=== PATIENT | female | born 1990 | race Caucasian/White ===

== ENCOUNTER 2020-08-22 10:07 | Emergency (ER) | payer MEDICAID ==
[2020-08-22 10:19] VITALS: BP 164/91
--- NOTE | 2020-08-22 10:31 | Emergency Department Report ---
ED HPI - General Chief complaint: Urogenital-Female Stated complaint: POSSIBLE MISCARRIAGE Time Seen by Provider: 08/22/20 10:21 Source: patient Mode of arrival: Ambulatory Limitations: No Limitations - History of Present Illness Initial comments: This is a 30-year-old female nontoxic well in appearnce with no signs of distress presents with wanting for a D/C for mischarge. Patient stated is about [address] MARTINEZ at ([facility]) and was started on medications for mischarge due to no heart beat but stated has not had any vaginal bleeding. Today, patient denies any symptoms or complaints. Patient denies any vaginal bleeding or pelvic pain. Patient denies any chest pain, shortness of breathe, fever, chills, nausea, vomiting, headache, stiff neck, abdominal pain, numbness or tingling. Patient denies any recent travels, long car rides, or recent hospital stays. Patient denies any urinary symptoms. Severity: moderate Associated symptoms: denies other symptoms. denies: nausea/vomiting, vaginal bleeding, vaginal discharge, abdominal pain, dysuria, headache, vision changes, malaise, dysparuenia, rash, seizure, shortness of breath, syncope, weakness Vaginal bleeding: none :: Yes Number of weeks : 8 Pre-jeanine care: followed by OB - Related Data Home Medications Medication Instructions Recorded Confirmed Last Taken Acetaminophen [Acetaminophen TAB] 325 mg PO Q4-6H PRN 06/06/15 06/06/15 1 Week Ago ~05/30/15 Allergies Allergy/AdvReac Type Severity Reaction Status Date / Time Penicillins Allergy Intermediate Hives Verified 06/05/15 18:27 ED Review of Systems ROS: Stated complaint: POSSIBLE MISCARRIAGE Other details as noted in HPI Comment: All other systems reviewed and negative Constitutional: denies: chills, fever Eyes: denies: eye pain, eye discharge, vision change ENT: denies: ear pain, throat pain Respiratory: denies: cough, shortness of breath, wheezing Cardiovascular: denies: chest pain, palpitations Endocrine: no symptoms reported Gastrointestinal: denies: abdominal pain, nausea, diarrhea Genitourinary: denies: urgency, dysuria, discharge Musculoskeletal: denies: back pain, joint swelling, arthralgia Skin: denies: rash, lesions Neurological: denies: headache, weakness, paresthesias Psychiatric: denies: anxiety, depression Hematological/Lymphatic: denies: easy bleeding, easy bruising ED Past Medical Hx - Past Medical History Hx Hypertension: No Hx Congestive Heart Failure: No Hx Diabetes: No Hx Deep Vein Thrombosis: No Hx Renal Disease: No Hx Sickle Cell Disease: No Hx Seizures: No Hx Asthma: No Hx COPD: No Hx HIV: No - Social History Smoking Status: Never Smoker - Medications Home Medications: Home Medications Medication Instructions Recorded Confirmed Last Taken Type Acetaminophen [Acetaminophen TAB] 325 mg PO Q4-6H PRN 06/06/15 06/06/15 1 Week Ago History ~05/30/15 ED Physical Exam - General Limitations: No Limitations General appearance: alert, in no apparent distress - Head Head exam: Present: atraumatic, normocephalic - Eye Eye exam: Present: normal appearance - Neck Neck exam: Present: normal inspection, full ROM - Respiratory Respiratory exam: Absent: respiratory distress - Cardiovascular Cardiovascular Exam: Present: regular rate - GI/Abdominal GI/Abdominal exam: Present: soft, normal bowel sounds. Absent: distended, tenderness, guarding, rebound, rigid, diminished bowel sounds - Extremities Exam Extremities exam: Present: full ROM - Back Exam Back exam: Present: full ROM - Neurological Exam Neurological exam: Present: alert, oriented X3, normal gait - Psychiatric Psychiatric exam: Present: normal affect, normal mood - Skin Skin exam: Present: warm, dry, intact, normal color. Absent: rash ED Course Vital Signs 08/22/20 10:16 Temperature 99.2 F Pulse Rate 103 H Respiratory 20 Rate Blood Pressure 164/91 O2 Sat by Pulse 100 Oximetry - Reevaluation(s) Reevaluation #1: 08/22/20 10:32 Patient is speaking in full sentences with no signs of distress noted. - Consultations Consultation #1: 08/22/20 10:32 Patient consulted with her OBGYN Dr. Martinez and stated patient needs to follow-up with her in her office next week and will office will call patient to schedule appointment shortly. ED Medical Decision Making - Medical Decision Making Patient was notified of the conversation with Dr. Martinez. Patient is stable and was examined by me. VSS. Exam is unremarkable. Patient was instructed to Follow-up with a OBGYN doctor in 3-5 days or if symptoms worsen and continue return to emergency room as soon as possible. At time of discharge, the patient does not seem toxic or ill in appearance. No acute signs of distress noted. Patient agrees to discharge treatment plan of care. No further questions noted by the patient. Critical care attestation.: If time is entered above; I have spent that time in minutes in the direct care of this critically ill patient, excluding procedure time. ED Disposition Clinical Impression: Referral needed Disposition: [facility] SCREENING EXAM-LEFT Is pt being admited?: No Does the pt Need Aspirin: No Condition: Stable Additional Instructions: Follow-up with a OBGYN doctor in 3-5 days or if symptoms worsen and continue return to emergency room as soon as possible. Referrals: PRIMARY CARE, [Referring] - 3-5 Days
== END 2020-08-22 10:40 | disposition left against medical advice (07) ==
LOC: ED 10:07
DX: Z53.21 Procedure and treatment not carried out due to patient leaving prior to being seen by health care provider (principal)

== ENCOUNTER 2022-06-25 17:15 | Inpatient (IN) | payer MEDICAID ==
--- NOTE | 2022-06-25 20:32 | History and Physical Report ---
History of Present Illness Date of examination: 06/25/22 Date of admission: 06/25/22 17:15 History of present illness: Patient was seen in office today underwent ultrasound for size smaller than dates. Patient ultrasound showed a asymmetric intrauterine growth retardation and patient is being admitted for labor induction. Menstrual History Regularity: regular Menses every: 28 days Duration: 6 LMP: 09/25/2021 LMP reliability: definite test type: urine test Date: 02/06/2022 BC at conception: none Planned ? no EDC Calculations LMP: 07/02/2022 EDC Confirmation: 07/02/2022 Past History : 4 Term Births: 2 Premature Births: 0 Living Children: 2 Para: 2 Mult. Births: 0 Prev : 0 Aborta: 1 Elect. Ab: 0 Spont. Ab: 1 Ectopics: 0 # 1 Delivery date: 04/10/2014 Weeks Gestation: 40 Delivery type: Hours of labor: 6 Anesthesia type: none Delivery location: [facility] Sex: Male weight: 6-13 Name: Ramsey # 2 Delivery date: 06/05/2015 Weeks Gestation: 39 Delivery type: Vaginal Anesthesia type: none Delivery location: [facility] Sex: male weight: 7.50 Comments: none # 3 Delivery date: 2019 Weeks Gestation: 8 Delivery type: SAB Comments: recv'd medications, no procedures Past Medical History: Hypertension Abnormal Pap Smear Anemia Past Surgical History: None Negative Past Surgical History Family History Summary: Other Family Member - Has No Family History of Ovarvian Cancer - Entered On: 12/07/2014 Other Family Member - Has No Family History of Colon Cancer - Entered On: 12/07/2014 Other Family Member - Has No Family History of Breast Cancer - Entered On: 12/07/2014 MGM - Has Family History of Cervical Cancer - Entered On: 12/07/2014 Father - Has Family History of Diabetes - Entered On: 12/07/2014 Mother - Has Family History of Diabetes - Entered On: 12/07/2014 Social History: Patient is Smoking History: Patient has never smoked. Risk Factors: Smoked Tobacco Use: Never smoker Smokeless Tobacco Use: Never Counseled to Quit/Cut Down: yes HIV High Risk Behavior: no Caffeine Use: 1 drinks per day Exercise: no Exercise Counseling: yes Seatbelt Use: preg-estate planning counselor % Family History Risk Factors: Family History of OR in 1 Female Relative Age < 65: no Family History of OR in 1 Male Relative Age < 55: no No Dietary Counseling Reason: pn yes Alcohol Use: no Drug Use: no Past Medical History Anesthesia Complications: negative Anemia: positive Autoimmune Disorder: negative Bleeding Disorder: negative Blood Transfusions: negative Breast Disease: negative Diabetes: negative Heart Disease: negative Hypertension: positive, diagnosed this , no longer on medications Hepatitis/Liver Disease: negative Kidney Disease/UTI: negative Neurologic/Epilepsy/Migraines: negative Phlebitis/Varicosities: negative Psychiatric: negative Pulmonary Disease/Asthma: negative Thyroid Disease: negative Hospitalizations: negative Surgery (Non-electronic data interchange specialist): None Negative Past Surgical History Abnormal PAP: positive, normal pap on 12/07/20 per pt, RACHNA signed ISSA Exposure: negative Infertility: negative Uterine Anomaly: negative Uterine Surgery (not C/S): negative Other Gynecologic Problems: negative Social Hx: Patient is Smoking History: Patient has never smoked. Infection History Hx of STD: none HIV Risk Eval: no Hepatitis B Risk Eval: low risk Personal hx. of genital herpes: no Partner hx. of genital herpes: no Rash, Viral, or Febrile illness since last LMP? no Varicella/Chicken Pox Status: Immunized TB Risk: no Genetic History Congenital Heart Defect: Mom: no Dad: no Franco Disease: Mom: no Dad: no Thalassemia Mom: no Dad: no Neural Tube Defect Mom: no Dad: no Down's Syndrome Mom: no Dad: no Brian-Sachs Mom: no Dad: no Sickle Cell Disease/Trait Mom: no Dad: no Hemophilia Mom: no Dad: no Muscular Dystrophy Mom: no Dad: no Cystic Fibrosis Mom: no Dad: no Hyrum Chorea Mom: no Dad: no Mental Retardation Mom: no Dad: no Fragile X Mom: no Dad: no Other Genetic/Chromosomal Disorder Mom: no Dad: no Child w/other defect Mom: no Dad: no Enviromental Exposures Enviromental Exposures Reviewed Xray Exposure: no Medication, drug, or alcohol use since LMP: no Chemical/Other Exposure: no Exposure to Cat Liter: yes Hx of Parvovirus (Fifth Disease): no Occupational Exposure to Children: none Current Allergies (reviewed today): PCN (Critical) Past History Past Medical History: hypertension, other (SEE HPI) Past Surgical History: other (SEE HPI) METAL BUFFER History: other (SEE HPI) Family/Genetic History: other (SEE HPI) Social history: full code, other (SEE HPI) - Obstetrical History Expected Date of Delivery: 07/02/22 Actual Gestation: 39 Week(s) 0 Day(s) : 4 Para: 2 Hx # Term Pregnancies: 2 Number of Pregnancies: 0 Spontaneous Abortions: 1 Induced : 0 Number of Living Children: 2 Medications and Allergies Allergies Allergy/AdvReac Type Severity Reaction Status Date / Time Penicillins Allergy Intermediate Hives Verified 06/05/15 18:27 Home Medications Medication Instructions Recorded Confirmed Last Taken Type Acetaminophen [Acetaminophen TAB] 325 mg PO Q4-6H PRN 06/06/15 06/06/15 1 Week Ago History ~05/30/15 Review of Systems Constitutional: other (SEE HPI) - Vital Signs Vital signs: Vital Signs Pulse BP 80 139/77 06/25/22 17:53 06/25/22 17:53 Temp Pulse Resp BP Pulse Ox 98.3 F 71 18 125/75 98 06/25/22 19:21 06/25/22 20:26 06/25/22 19:21 06/25/22 20:17 06/25/22 20:26 - Physical Exam Breasts: Positive: deferred Cardiovascular: Regular rate Lungs: Positive: Normal air movement Abdomen: Positive: normal appearance, soft Genitourinary (Female): Positive: normal external genitalia Extremities: Positive: normal Results Result Diagrams: 06/25/22 19:50 All other labs normal. Assessment and Plan - Patient Problems (1) Asymmetric IUGR affecting , antepartum Current Visit: Yes Status: Acute Plan to address problem: Patient been admitted for serial labor induction. Patient will receive Cervidil this evening. We will monitor tracing closely with the start of Pitocin in a.m. per protocol. (2) Hypertension Current Visit: Yes Status: Acute Qualifiers: Hypertension type: primary hypertension Qualified Code(s): I10 - Essential (primary) hypertension Plan to address problem: Patient presently on no medication we will monitor blood pressure throughout labor induction.
[2022-06-25] MEDS ORDERED: ACETAMINOPHEN 325 MG TAB PO PRN (20:35)
[2022-06-25] MEDS ORDERED: LIDOCAINE (2%) 20 MG/1 ML VIAL 20 ML MDV INFILTRATI ONE (20:35)
[2022-06-25] MEDS ORDERED: miSOPROStol 200 MCG TAB PR PRN (20:35)
[2022-06-25] MEDS ORDERED: ePHEDrine SULFATE 50 MG/1 ML INJ IV PRN (20:35)
[2022-06-25] MEDS ORDERED: MINERAL OIL 30 ML ORAL LIQD PO PRN (20:35)
[2022-06-25] MEDS ORDERED: METHYLERGONOVINE MALEATE 0.2 MG/ML VIAL IM PRN (20:35)
[2022-06-25] MEDS ORDERED: CARBOPROST TROMETHAMINE 250 MCG/1 ML INJ IM PRN (20:35)
[2022-06-25] MEDS ORDERED: TERBUTALINE 1 MG/1 ML INJ SUB-Q PRN (20:35)
[2022-06-25] MEDS ORDERED: OXYTOCIN 10 UNIT/1 ML INJ IM PRN (20:35)
[2022-06-25] MEDS ORDERED: LOPERAMIDE 2 MG CAP PO PRN (20:35)
[2022-06-25] MEDS ORDERED: BUTORPHANOL 2 MG/1 ML INJ IV PRN ×2 (20:35)
[2022-06-25] MEDS ORDERED: DINOPROSTONE 10 MG VAG SUPP VG ONE (20:35)
[2022-06-25] MEDS ORDERED: LACTATED RINGERS 1,000 ML IV SCH (20:45)
[2022-06-25] MEDS ORDERED: OXYTOCIN DRIP 30 UNITS/500 ML BAG IV SCH (21:00)
[2022-06-25 21:51] LABS: Hematocrit 33.5 % (30.3-42.9); Hemoglobin 11.2 gm/dl (10.1-14.3); Mean Corpuscular HGB Conc 33 % (30-34); Mean Corpuscular Volume 89 fl (79-97); Platelet Count 291 K/mm3 (140-440); Red Blood Count 3.76 M/mm3 (3.65-5.03); Red Cell Distribution Width 14.9 % (13.2-15.2)
--- NOTE | 2022-06-26 08:32 | Progress Note ---
Assessment and Plan p c/o strong ctx pain starting around 0730 this morning, cervidil removed. SVE 7/100/0 BBOW. Pt desires IV sedation but no epidural. Plan to AROM, anticipate . - Patient Problems (1) 39 weeks gestation of Current Visit: Yes Status: Acute (2) Asymmetric IUGR affecting , antepartum Current Visit: Yes Status: Acute Subjective - Subjective Date of service: 06/26/22 Principal diagnosis: IUP @ 39+1; IOL for IUGR Patient reports: vaginal bleeding, contractions Objective - Vital Signs Vital Signs: Vital Signs - 12hr 06/25/22 06/25/22 06/25/22 20:31 20:36 20:40 Temperature Pulse Rate 73 87 58 L Respiratory Rate Blood Pressure O2 Sat by Pulse 97 95 93 Oximetry 06/25/22 06/25/22 06/25/22 20:41 20:46 20:47 Temperature Pulse Rate 81 72 69 Respiratory Rate Blood Pressure 109/60 O2 Sat by Pulse 97 98 94 Oximetry 06/25/22 06/25/22 06/25/22 20:51 20:56 21:01 Temperature Pulse Rate 71 72 66 Respiratory Rate Blood Pressure O2 Sat by Pulse 99 98 98 Oximetry 06/25/22 06/25/22 06/25/22 21:06 21:11 21:16 Temperature Pulse Rate 68 72 68 Respiratory Rate Blood Pressure O2 Sat by Pulse 98 98 97 Oximetry 06/25/22 06/25/22 06/25/22 21:17 21:21 21:26 Temperature Pulse Rate 62 72 75 Respiratory Rate Blood Pressure 126/63 O2 Sat by Pulse 97 96 Oximetry 06/25/22 06/25/22 06/25/22 21:31 21:36 21:41 Temperature Pulse Rate 71 71 75 Respiratory Rate Blood Pressure O2 Sat by Pulse 97 97 94 Oximetry 06/25/22 06/25/22 06/25/22 21:42 21:46 21:47 Temperature Pulse Rate 76 75 69 Respiratory Rate Blood Pressure 115/77 O2 Sat by Pulse 94 97 93 Oximetry 06/25/22 06/25/22 06/25/22 22:01 22:06 22:11 Temperature Pulse Rate 77 65 75 Respiratory Rate Blood Pressure O2 Sat by Pulse 98 99 99 Oximetry 06/25/22 06/25/22 06/25/22 22:16 22:17 22:21 Temperature Pulse Rate 75 68 73 Respiratory Rate Blood Pressure 122/61 O2 Sat by Pulse 99 99 Oximetry 06/25/22 06/25/22 06/25/22 22:26 22:31 22:36 Temperature Pulse Rate 69 69 71 Respiratory Rate Blood Pressure O2 Sat by Pulse 98 99 98 Oximetry 06/25/22 06/25/22 06/25/22 22:41 22:46 22:47 Temperature Pulse Rate 75 68 68 Respiratory Rate Blood Pressure 116/66 O2 Sat by Pulse 98 99 Oximetry 06/25/22 06/25/22 06/25/22 22:51 22:56 23:01 Temperature Pulse Rate 68 77 72 Respiratory Rate Blood Pressure O2 Sat by Pulse 99 99 98 Oximetry 06/25/22 06/25/22 06/25/22 23:06 23:11 23:16 Temperature Pulse Rate 73 75 73 Respiratory Rate Blood Pressure O2 Sat by Pulse 98 98 97 Oximetry 06/25/22 06/25/22 06/25/22 23:17 23:21 23:26 Temperature Pulse Rate 71 79 84 Respiratory Rate Blood Pressure 113/63 O2 Sat by Pulse 93 98 97 Oximetry 06/25/22 06/25/22 06/25/22 23:31 23:36 23:41 Temperature Pulse Rate 70 76 74 Respiratory Rate Blood Pressure O2 Sat by Pulse 99 98 97 Oximetry 06/25/22 06/25/22 06/25/22 23:46 23:47 23:51 Temperature Pulse Rate 79 68 79 Respiratory Rate Blood Pressure 111/60 O2 Sat by Pulse 98 98 Oximetry 06/25/22 06/26/22 06/26/22 23:56 00:00 00:01 Temperature 98 F Pulse Rate 72 78 80 Respiratory 18 Rate Blood Pressure O2 Sat by Pulse 99 99 95 Oximetry 06/26/22 06/26/22 06/26/22 00:06 00:11 00:16 Temperature Pulse Rate 70 76 70 Respiratory Rate Blood Pressure O2 Sat by Pulse 98 97 97 Oximetry 06/26/22 06/26/22 06/26/22 00:17 00:21 00:26 Temperature Pulse Rate 66 69 66 Respiratory Rate Blood Pressure 132/65 O2 Sat by Pulse 97 98 Oximetry 06/26/22 06/26/22 06/26/22 00:31 00:36 00:41 Temperature Pulse Rate 75 72 70 Respiratory Rate Blood Pressure O2 Sat by Pulse 97 97 97 Oximetry 06/26/22 06/26/22 06/26/22 00:46 00:47 00:51 Temperature Pulse Rate 69 71 71 Respiratory Rate Blood Pressure 129/64 O2 Sat by Pulse 97 97 Oximetry 06/26/22 06/26/22 06/26/22 00:56 01:01 01:06 Temperature Pulse Rate 69 72 73 Respiratory Rate Blood Pressure O2 Sat by Pulse 97 97 97 Oximetry 06/26/22 06/26/22 06/26/22 01:11 01:16 01:17 Temperature Pulse Rate 77 67 65 Respiratory Rate Blood Pressure 129/64 O2 Sat by Pulse 98 98 Oximetry 06/26/22 06/26/22 06/26/22 01:21 01:26 01:31 Temperature Pulse Rate 72 70 69 Respiratory Rate Blood Pressure O2 Sat by Pulse 98 100 99 Oximetry 06/26/22 06/26/22 06/26/22 01:36 01:41 01:46 Temperature Pulse Rate 76 69 86 Respiratory Rate Blood Pressure O2 Sat by Pulse 97 98 98 Oximetry 06/26/22 06/26/22 06/26/22 01:47 01:51 01:56 Temperature Pulse Rate 70 70 69 Respiratory Rate Blood Pressure 128/59 O2 Sat by Pulse 98 99 Oximetry 06/26/22 06/26/22 06/26/22 02:01 02:06 02:11 Temperature Pulse Rate 73 66 65 Respiratory Rate Blood Pressure O2 Sat by Pulse 99 97 97 Oximetry 06/26/22 06/26/22 06/26/22 02:16 02:17 02:21 Temperature Pulse Rate 66 65 86 Respiratory Rate Blood Pressure 127/65 O2 Sat by Pulse 99 98 Oximetry 06/26/22 06/26/22 06/26/22 02:26 02:31 02:36 Temperature Pulse Rate 74 75 70 Respiratory Rate Blood Pressure O2 Sat by Pulse 100 99 99 Oximetry 06/26/22 06/26/22 06/26/22 02:41 02:46 02:47 Temperature Pulse Rate 67 75 73 Respiratory Rate Blood Pressure 124/71 O2 Sat by Pulse 99 99 Oximetry 06/26/22 06/26/22 06/26/22 02:51 03:31 03:36 Temperature Pulse Rate 70 72 70 Respiratory Rate Blood Pressure O2 Sat by Pulse 99 99 99 Oximetry 06/26/22 06/26/22 06/26/22 03:41 03:46 03:47 Temperature Pulse Rate 67 64 65 Respiratory Rate Blood Pressure 124/64 O2 Sat by Pulse 99 98 Oximetry 06/26/22 06/26/22 06/26/22 03:51 03:56 04:01 Temperature Pulse Rate 65 65 65 Respiratory Rate Blood Pressure O2 Sat by Pulse 100 100 99 Oximetry 06/26/22 06/26/22 06/26/22 04:06 04:11 04:16 Temperature Pulse Rate 65 64 64 Respiratory Rate Blood Pressure O2 Sat by Pulse 100 100 99 Oximetry 06/26/22 06/26/22 06/26/22 04:17 04:21 04:26 Temperature Pulse Rate 64 63 66 Respiratory Rate Blood Pressure 106/59 O2 Sat by Pulse 99 99 Oximetry 06/26/22 06/26/22 06/26/22 04:31 04:36 04:41 Temperature Pulse Rate 61 64 62 Respiratory Rate Blood Pressure O2 Sat by Pulse 100 99 98 Oximetry 06/26/22 06/26/22 06/26/22 04:46 04:47 04:51 Temperature Pulse Rate 67 69 72 Respiratory Rate Blood Pressure 121/68 O2 Sat by Pulse 98 99 Oximetry 06/26/22 06/26/22 06/26/22 04:56 05:01 05:06 Temperature Pulse Rate 76 71 69 Respiratory Rate Blood Pressure O2 Sat by Pulse 98 98 98 Oximetry 06/26/22 06/26/22 06/26/22 05:11 05:16 05:17 Temperature Pulse Rate 76 69 67 Respiratory Rate Blood Pressure 135/67 O2 Sat by Pulse 99 98 Oximetry 06/26/22 06/26/22 06/26/22 05:21 05:26 05:31 Temperature Pulse Rate 79 68 67 Respiratory Rate Blood Pressure O2 Sat by Pulse 96 99 99 Oximetry 06/26/22 06/26/22 06/26/22 05:36 05:41 05:46 Temperature Pulse Rate 68 71 73 Respiratory Rate Blood Pressure O2 Sat by Pulse 98 99 98 Oximetry 06/26/22 06/26/22 06/26/22 05:47 05:51 05:56 Temperature Pulse Rate 62 67 75 Respiratory Rate Blood Pressure 130/70 O2 Sat by Pulse 99 99 Oximetry 06/26/22 06/26/22 06/26/22 06:01 06:41 06:43 Temperature Pulse Rate 64 61 Respiratory Rate Blood Pressure 126/62 O2 Sat by Pulse 98 97 Oximetry 06/26/22 06/26/22 06/26/22 06:46 06:51 06:56 Temperature Pulse Rate 65 63 64 Respiratory Rate Blood Pressure O2 Sat by Pulse 96 97 96 Oximetry 06/26/22 06/26/22 06/26/22 07:01 07:06 07:11 Temperature Pulse Rate 62 64 65 Respiratory Rate Blood Pressure O2 Sat by Pulse 96 96 96 Oximetry 06/26/22 06/26/22 06/26/22 07:13 07:16 07:18 Temperature Pulse Rate 61 61 66 Respiratory Rate Blood Pressure 128/62 O2 Sat by Pulse 96 93 Oximetry 06/26/22 06/26/22 06/26/22 07:21 07:26 07:31 Temperature Pulse Rate 64 80 64 Respiratory Rate Blood Pressure O2 Sat by Pulse 95 96 98 Oximetry 06/26/22 06/26/22 06/26/22 07:36 07:40 07:41 Temperature Pulse Rate 61 80 74 Respiratory Rate Blood Pressure O2 Sat by Pulse 95 93 97 Oximetry 06/26/22 06/26/22 06/26/22 07:44 07:46 07:51 Temperature Pulse Rate 62 65 63 Respiratory Rate Blood Pressure 132/75 O2 Sat by Pulse 98 97 Oximetry 06/26/22 06/26/22 06/26/22 07:56 08:01 08:06 Temperature Pulse Rate 64 70 69 Respiratory Rate Blood Pressure O2 Sat by Pulse 97 98 96 Oximetry 06/26/22 06/26/22 08:11 08:23 Temperature Pulse Rate 80 77 Respiratory Rate Blood Pressure O2 Sat by Pulse 94 99 Oximetry - Exam Cardiovascular: Regular rate Lungs: Normal air movement Abdomen: Present: normal appearance, soft Vulva: both: normal Uterus: Present: normal FHR: auscultation normal, category 1 Uterine Contraction Monitor Mode: External Cervical Dilatation: 7 (BBOW) Cervical Effacement Percentage: 100 station: 0 Uterine Contraction Frequency (min): 2-4 Uterine Contraction Duration: 60 Uterine Contraction Pattern: Regular Uterine Tone Measurement Phase: Contraction Uterine Contraction Intensity: Strong/Firm - Labs Labs: Abnormal Labs 06/25/22 19:50 WBC 11.1 H Laboratory Results - last 24 hr 06/25/22 06/25/22 19:50 19:50 WBC 11.1 H RBC 3.76 Hgb 11.2 Hct 33.5 MCV 89 MCH 30 MCHC 33 RDW 14.9 Plt Count 291 Blood Type O POSITIVE Antibody Screen Negative
[2022-06-26] MEDS ORDERED: OXYTOCIN DRIP 30 UNITS/500 ML BAG IV SCH (10:00)
--- NOTE | 2022-06-26 11:51 | Procedure Note ---
OB Delivery Note - Delivery Date of Delivery: 06/26/22 [employer]: [facility] (PAYTON Becerra) Estimated blood loss: 100cc - Vaginal Delivery presentation: vertex Delivery position: OP Intrapartum events: other(please specify) (IOL for IUGR) Delivery induction: cervidil Delivery augmentation: rupture of membranes, pitocin Delivery monitor: external FHT, external uterine Route of delivery: Delivery placenta: spontaneous Delivery cord: 3 umbilical vessels Episiotomy: none Delivery laceration: none Anesthesia: intravenous Delivery comments: male born over intact perineum, placed skin to skin on mother's abdomen. 3 vessel cord clamped and cut, cord blood collected. placenta del intact and complete. mother and baby LDR stable, all counts correct. - A at 1 minute: 8 at 5 minutes: 9 Gender: Male (6#6oz)
[2022-06-26] MEDS ORDERED: PROMETHAZINE 25 MG TAB PO PRN (13:00)
[2022-06-26] MEDS ORDERED: LANOLIN/ZINC/DIMETHICONE (LANSINOH) 7 GM TP PRN (13:00)
[2022-06-26] MEDS ORDERED: diphenhydrAMINE 25 MG CAP PO PRN (13:00)
[2022-06-26] MEDS ORDERED: BENZOCAINE/MENTHOL 20/0.5% TOP SPRAY 56 GM TP PRN (13:00)
[2022-06-26] MEDS ORDERED: ACETAMINOPHEN 325 MG TAB PO PRN (13:00)
[2022-06-26] MEDS ORDERED: ONDANSETRON 4 MG/2 ML INJ IV PRN (13:00)
[2022-06-26] MEDS ORDERED: WITCH HAZEL/ GLYCERIN PAD TP PRN (13:00)
[2022-06-26] MEDS ORDERED: PROMETHAZINE 25 MG RECT SUPP PR PRN (13:00)
[2022-06-26] MEDS ORDERED: oxyCODONE /ACETAMINOPHEN 5-325MG TAB PO PRN (13:00)
[2022-06-26] MEDS: IBUPROFEN 800 MG TAB PO SCH ×3 (15:33→23:30)
[2022-06-26] MEDS ORDERED: MAGNESIUM HYDROXIDE (MOM) ORAL LIQD UDC PO PRN (22:00)
[2022-06-26] MEDS: DOCUSATE SODIUM 100 MG CAP PO SCH (23:30)
[2022-06-26] MEDS: FERROUS SULFATE 325 MG TAB PO SCH (23:30)
[2022-06-27 00:57] LABS: Hemoglobin 10.5 gm/dl (10.1-14.3)
[2022-06-27] MEDS: IBUPROFEN 800 MG TAB PO SCH ×3 (05:35→17:23)
[2022-06-27] MEDS ORDERED: PRENATAL VIT27-FE FUMARATE-FOLIC ACID VIT TAB PO SCH (10:00)
--- NOTE | 2022-06-27 11:12 | Discharge Summary ---
Providers - Providers Date of Admission: 06/25/22 17:15 Date of discharge: 06/27/22 (desires d/c home) Attending physician: EKATERINA CAMEJO Primary care physician: EKATERINA CAMEJO Hospitalization Reason for admission: IOL for IUGR Condition: Good Pertinent studies: H&H 10.5/32.0 Procedures: Hospital course: uncomplicated and course Disposition: 01 HOME / SELF CARE / HOMELESS Final Discharge Diagnosis (Prints w/discharge instructions): vaginal delivery Time spent for discharge: 20 - Discharge Diagnoses (1) Spontaneous vaginal delivery Status: Acute Core Measure Documentation - Palliative Care Palliative Care/ Comfort Measures: Not Applicable - Core Measures Any of the following diagnoses?: none Exam - Constitutional Vitals: Temp Pulse Resp BP Pulse Ox 98.1 F 66 18 128/85 99 06/27/22 08:09 06/27/22 08:09 06/27/22 08:09 06/27/22 08:09 06/27/22 08:09 General appearance: Present: no acute distress, well-nourished - EENT Eyes: Present: PERRL ENT: hearing intact, clear oral mucosa - Neck Neck: Present: supple, normal ROM - Respiratory Respiratory effort: normal Respiratory: bilateral: CTA - Cardiovascular Rhythm: regular Heart Sounds: Absent: rub, click - Extremities Extremities: No edema Peripheral Pulses: within normal limits - Abdominal General gastrointestinal: Present: soft, non-tender, non-distended, normal bowel sounds Female genitourinary: Present: normal - Integumentary Integumentary: Present: clear, warm, dry - Musculoskeletal Musculoskeletal: gait normal, strength equal bilaterally - Psychiatric Psychiatric: appropriate mood/affect, intact judgment & insight - Neurologic Neurologic: CNII-XII intact, moves all extremities - Additional findings Additional findings: lochia scant, fundus firm Plan Activity: no restrictions Diet: regular Follow up with: EKATERINA CAMEJO MD [Primary Care Provider] - 6 Weeks
[2022-06-27] MEDS: FERROUS SULFATE 325 MG TAB PO SCH (11:36)
[2022-06-27] MEDS: DOCUSATE SODIUM 100 MG CAP PO SCH (11:36)
[2022-06-27 21:45] VITALS: BP 111/60
== END 2022-06-27 21:35 | disposition home or self-care (01) | DRG 774 ==
LOC: LD 17:15 → OB 06-26 14:06
PROVIDERS: ADMIT Obstetrics & Gynecology; ATTEND Obstetrics & Gynecology
PROC: 10E0XZZ Delivery of Products of Conception, External Approach (ICD-10-PCS; principal; 2022-06-26)
PROC: 3E0P7VZ Introduction of Hormone into Female Reproductive, Via Natural or Artificial Opening (ICD-10-PCS; 2022-06-26)
DX: O36.5930 Maternal care for other known or suspected poor fetal growth, third trimester, not applicable or unspecified (principal); O10.92 Unspecified pre-existing hypertension complicating childbirth; Z3A.39 39 weeks gestation of pregnancy; Z20.822 Contact with and (suspected) exposure to COVID-19; Z88.0 Allergy status to penicillin; Z37.0 Single live birth
CPT/HCPCS: 36415; 85014; 85018; 85027; 86850; 86900; 86901; G0378; J0595; J2590; U0003